=== PATIENT | female | born 1945 | race Caucasian/White ===

== ENCOUNTER → 2017-06-21 15:02 | Outpatient (CLI) | payer MEDICARE, OTHER ==
[2015-12-16 06:38] VITALS: BMI 37.6
[~2017-06-21 15:02] MED LIST: AZOPT 1% OPHT D10 ML LEFT EYE; BUPROPION XL300 MG PO; COMBIGAN OPHT DR5 ML LEFT EYE; EEMT H.S. 0.6251 TAB PO; ESTRACE1 MG PO; HYDROCODONE-APA1 TAB PO; PRINZIDE 20-251 TA1 PO; SYNTHROID112 MCG PO; TIMOPTIC 0.5 % O5 ML RIGHT EYE; XALATAN 0.0052.5 ML LEFT EYE; XANAX2 MG PO
== END | disposition home or self-care (01) ==
LOC: D.MRI 15:02
DX: M54.5 Low back pain (principal)

== ENCOUNTER 2021-04-18 03:33 | Inpatient (IN) | payer OTHER ==
[~2021-04-18] VITALS: Ht 157.5 cm; Wt 90.9 kg
--- NOTE | 2021-04-18 05:18 | NUR ---
PT TO RADIOLOGY
--- NOTE | 2021-04-18 05:39 | NUR ---
PT RETURNED FROM RADIOLOGY
[2021-04-18 05:45] VITALS: BP 116/74
[2021-04-18 06:54] LABS: ANION GAP 8.3 mmol/L (8-16); CALCIUM 8.3 mg/dL (8.5-10.1); CARBON DIOXIDE 29.9 mmol/L (21.0-32.0); CREATININE - SERUM 1.2 mg/dL (0.6-1.3); POTASSIUM - SERUM 4.2 mmol/L (3.5-5.1)
[2021-04-18 06:55] LABS: BASOPHILS 0.3 % (0-2); EOSINOPHILS 1.2 % (0-7); HEMATOCRIT 43.8 % (36.0-48.0); HEMOGLOBIN 14.7 g/dL (12-16); MCH 32.6 pg (26.0-34.0); MCHC 33.5 g/dL (31.0-37.0); MCV 97.2 fL (80.0-100.0); MEAN PLATELET VOLUME 7.9 fL (7.4-10.4); MONOCYTES 10.3 % (2-11); NEUTROPHILS 73.2 % (40-80); PLATELET COUNT 221 10x3/uL (130-400); RBC 4.51 10x6/uL (4.00-5.40); RDW 13.7 % (11.5-14.5)
[2021-04-18 07:01] LABS: ALBUMIN 3.7 g/dL (3.4-5.0); BILIRUBIN - TOTAL 0.41 mg/dL (0.2-1.3); PROTEIN - SERUM 6.8 g/dL (6.4-8.2)
[2021-04-18 07:25] LABS: INR 1.16 (0.85-1.17); PROTIME 13.7 SECONDS (11.6-15.0)
[2021-04-18] MEDS ORDERED: HYDROCODON-ACE1 EA10 PO (09:29)
[2021-04-18 09:30] VITALS: Ht 157.5 cm; Wt 90.9 kg
[2021-04-18] MEDS ORDERED: [UNRECOGNIZED DRUG - SUPPLY] (09:30)
--- NOTE | 2021-04-18 10:14 | NUR ---
report called to Pricila HUNTLEY
--- NOTE | 2021-04-18 10:35 | NUR ---
Pt has decided she wants to go home since she doesn't need to have surgery. She has been cleared for home by ortho and prescriptions have been written for home pain medicine. . Dr. Gaffney/Candy have been paged. Dr. Gaffney returned call and has approved discharge home with follow up by PCP Dr. Mcgee and follow up with Dr. aCrter.
== END 2021-04-18 10:50 | disposition home or self-care (01) | DRG 563 ==
LOC: D.ER 03:33 → D.EDHOLD 06:29 → D.MS 09:29
PROVIDERS: Family Medicine; ADMIT Legal Medicine; ATTEND Legal Medicine
DX: S42.201A Unspecified fracture of upper end of right humerus, initial encounter for closed fracture (principal); W19.XXXA Unspecified fall, initial encounter; I10 Essential (primary) hypertension; Z85.42 Personal history of malignant neoplasm of other parts of uterus